=== PATIENT | male | born 1985 | race Two or more races ===

== ENCOUNTER 2018-02-20 12:55 | Inpatient (IN) | payer OTHER ==
[2018-02-20 13:23] VITALS: BMI 25.4
--- NOTE | 2018-02-20 14:57 | HP ---
CIWA Score - CIWA Score Nausea/Vomitin Muscle Tremors: 2 Anxiety: 3 Agitation: 2 Paroxysmal Sweats: 2 Orientation: 0-Oriented Tacttile Disturbances: 2-Mild Itch/Numbness/Burn Auditory Disturbances: 0-None Visual Disturbances: 0-None Headache: 2-Mild CIWA-Ar Total Score: 15 Admission ROS [facility] - HPI Chief Complaint: needs help to stop drinking and druging every day. Allergies/Adverse Reactions: Allergies Allergy/AdvReac Type Severity Reaction Status Date / Time No Known Allergies Allergy Verified 02/20/18 14:27 History of Present Illness: 32 y/o m pt h/o alcohol use starting at age 14 . Wants detox. Exam Limitations: No Limitations - Ebola screening Have you traveled outside of the country in the last 21 days: No Have you had contact with anyone from an Ebola affected area: No Have you been sick,other than usual withdrawal symptoms: No - Review of Systems Constitutional: Malaise, Night Sweats, Changes in sleep EENT: reports: Other (missing teeth) Respiratory: reports: No Symptoms reported Cardiac: reports: No Symptoms Reported GI: reports: Nausea : reports: Frequency Musculoskeletal: reports: Back Pain Neuro: reports: Headache, Tremors Endocrine: reports: No Symptoms Reported Hematology: reports: No Symptoms Reported Psychiatric: reports: Orientated x3, Anxious, Depressed Other Systems: Reviewed and Negative Patient History - Patient Medical History Hx Anemia: No Hx Asthma: No Hx Chronic Obstructive Pulmonary Disease (COPD): No Hx Cancer: No Hx Cardiac Disorders: No Hx Hypertension: No Hx Hypercholesterolemia: No Hx Pacemaker: No HX Cerebrovascular Accident: No Hx Seizures: No Hx Dementia: No Hx Diabetes: No Hx Gastrointestinal Disorders: No Hx Genitourinary Disorders: No Hx Sexually Transmitted Disorders: No Hx Renal Disease (ESRD): No Hx Thyroid Disease: No Hx Hepatitis C: No Hx Depression: Yes Hx Suicide Attempt: No Hx Bipolar Disorder: No Hx Schizophrenia: Yes - Patient Surgical History Past Surgical History: Yes Hx Neurologic Surgery: No Hx Cataract Extraction: No Hx Cardiac Surgery: No Hx Lung Surgery: No Hx Breast Surgery: No Hx Breast Biopsy: No Hx Abdominal Surgery: No Hx Appendectomy: No Hx Cholecystectomy: No Hx Genitourinary Surgery: No Hx Section: No Hx Orthopedic Surgery: Yes (fx, right orbit/mandible) Anesthesia Reaction: No - PPD History Previous Implant?: Yes Documented Results: Negative w/o proof Implanted On Prior R Admission?: No - Reproductive History Patient is a Female of Child Bearing Age (11 -55 yrs old): No - Smoking Cessation Smoking history: Current every day smoker Have you smoked in the past 12 months: Yes Aproximately how many cigarettes per day: 2 Cigars Per Day: 0 Hx Chewing Tobacco Use: No Initiated information on smoking cessation: Yes 'Breaking Loose' booklet given: 02/20/18 - Substance & Tx. History Hx Alcohol Use: Yes Hx Substance Use: Yes Substance Use Type: Alcohol, Marijuana Hx Substance Use Treatment: No - Substances Abused Alcohol-beef Route: Oral Frequency: Daily Amount used: 1-6 pk. 24 oz cans Age of first use: 12 Date of Last Use: 02/19/18 Marijuana Route: Smoking Frequency: Daily Amount used: $5 Age of first use: 14 Date of Last Use: 02/19/18 Family Disease History - Family Disease History Family History: Denies Admission Physical Exam [facility] - Vital Signs Vital Signs: Vital Signs - 24 hr 02/20/18 13:17 Temperature 98.3 F Pulse Rate 68 Respiratory 18 Rate Blood Pressure 121/78 - Physical General Appearance: Yes: No Apparent Distress, Appropriately Dressed, Thin, Anxious HEENTM: Yes: EOMI, Hearing grossly Normal, Normocephalic, Normal Voice, HUSSEIN Respiratory: Yes: Within Normal Limits, Chest Non-Tender, Lungs Clear, Normal Breath Sounds, No Respiratory Distress Neck: Yes: Within Normal Limits Breast: Yes: Within Normal Limits Cardiology: Yes: Regular Rhythm, Regular Rate, S1, S2 Abdominal: Yes: Normal Bowel Sounds, Non Tender, Flat, Soft, Increased Bowel Sounds Genitourinary: Yes: Frequency Back: Yes: Decreased Range of Motion, Muscle Spasm Musculoskeletal: Yes: Back pain Extremities: Yes: Non-Tender, Tremors 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 NML intact, Fully Oriented, Alert, Motor Strength 5/5, Normal Mood/Affect Integumentary: Yes: Moist Lymphatic: Yes: Within Normal Limits - Diagnostic (1) Chronic alcoholism Current Visit: Yes Status: Chronic (2) Marijuana dependence Current Visit: Yes Status: Chronic (3) Schizophrenia Current Visit: Yes Status: Chronic (4) Nicotine abuse Current Visit: Yes Status: Chronic Cleared for Admission [facility] - Detox or Rehab [facility] Level of Care: Medically Managed [facility] Breath Alcohol Content Breath Alcohol Content: 0 Urine Drug Screen - Results Drug Screen Negative: No Urine Drug Screen Results: THC-Marijuana
[2018-02-20] MEDS ORDERED: IBUPROFEN 400 MG TABLET (FP) PO PRN (15:16)
[2018-02-20] MEDS ORDERED: MENTHOL/PHENOL 1 EACH UD MM PRN (15:16)
[2018-02-20] MEDS ORDERED: MAG HYDROX/AL HYDROX/SIMETH 30 ML UNIT-DOSE CUP PO PRN (15:16)
[2018-02-20] MEDS ORDERED: chlordiazePOXIDE HCL 25 MG CAPSULE PO PRN (15:16)
[2018-02-20] MEDS ORDERED: hydrOXYzine PAMOATE 25 MG CAPSULE (FP) PO PRN (15:16)
[2018-02-20] MEDS ORDERED: P-EPHED 60MG/TRIPROLIDI 2.5MG TABLET PO PRN (15:16)
[2018-02-20] MEDS ORDERED: guaiFENesin/D-METHORPHAN HB 10 ML UNIT-DOSE CUPS PO PRN (15:16)
[2018-02-20] MEDS ORDERED: MAGNESIUM CITRATE 300 ML BOTTLE PO PRN (15:16)
[2018-02-20] MEDS ORDERED: LOPERAMIDE HCL 2 MG CAPSULE PO PRN (15:16)
[2018-02-20] MEDS ORDERED: MAGNESIUM HYDROX 2400MG/30ML ORAL SUSPENSION 30 ML CUP PO PRN (15:16)
[2018-02-20] MEDS ORDERED: ACETAMINOPHEN 325 MG TABLET (FP) PO PRN (15:16)
[2018-02-20 17:40] LABS: URINE APPEARANCE TURBID; URINE BILIRUBIN NEGATIVE (<2.0 mg/dL); URINE COLOR DKYELLOW; URINE GLUCOSE (UA) NEGATIVE (NEGATIVE); URINE KETONE NEGATIVE (NEGATIVE); URINE LEUK ESTERASE NEGATIVE (NEGATIVE); URINE NITRITE NEGATIVE (NEGATIVE); URINE PROTEIN NEGATIVE (NEGATIVE); URINE UROBILINOGEN NEGATIVE mg/dL (0.2-1.0)
[2018-02-20] MEDS: chlordiazePOXIDE HCL 25 MG CAPSULE PO SCH ×2 (18:09→22:27)
[2018-02-20] MEDS ORDERED: MELATONIN 5 MG TABLETS PO PRN (22:00)
[2018-02-20] MEDS: THIAMINE HCL 100 MG TABLET (FP) PO SCH (22:27)
[2018-02-21] MEDS: chlordiazePOXIDE HCL 25 MG CAPSULE PO SCH ×2 (05:30→22:40)
[2018-02-21] MEDS ORDERED: PRENATAL VITAMINS W/ FOLIC ACID TABLET (FP) PO SCH (10:00)
[2018-02-21 10:08] LABS: HEMATOCRIT 42.6 % (35.4-49); HEMOGLOBIN 14.5 GM/dL (11.7-16.9); MCH 32.2 pg (25.7-33.7); MCHC 34.1 g/dl (32.0-35.9); MEAN CELL VOLUME 94.5 fl (80-96); MEAN PLT VOLUME 9.2 fl (7.5-11.1); PLATELET COUNT 193 K/MM3 (134-434); RBC 4.51 M/mm3 (4.00-5.60); RDW 12.5 % (11.9-15.9); WHITE BLOOD COUNT 6.3 K/mm3 (4.0-10.0)
[2018-02-21 10:22] LABS: CHLORIDE 108 mmol/L (98-107); SODIUM 142 mmol/L (136-145)
[2018-02-21 10:52] LABS: ALBUMIN 3.6 g/dl (3.4-5.0); ALK PHOS 87 U/L (45-117); ANION GAP 9 MMOL/L (8-16); BILIRUBIN,TOTAL 0.6 mg/dL (0.2-1.0); BLOOD UREA NITROGEN 10 mg/dL (7-18); CALCIUM 9.1 mg/dL (8.5-10.1); CO2 25 mmol/L (21-32); CREATININE 0.6 mg/dL (0.7-1.3); GLUCOSE,RANDOM 91 mg/dL (74-106); SGOT/AST 20 U/L (15-37); SGPT/ALT 26 U/L (12-78); TOT PROT 6.6 g/dl (6.4-8.2)
--- NOTE | 2018-02-21 12:00 | PN ---
S CIWA - CIWA Score Nausea/Vomitin Muscle Tremors: 2 Anxiety: 2 Agitation: 2 Paroxysmal Sweats: 2 Orientation: 0-Oriented Tacttile Disturbances: 2-Mild Itch/Numbness/Burn Auditory Disturbances: 0-None Visual Disturbances: 0-None Headache: 2-Mild CIWA-Ar Total Score: 14 S Progress Note (SOAP) Subjective: Tremors, interrupted sleep, muscle aches Objective: 02/21/18 11:59 Vital Signs - 8 hr 02/21/18 02/21/18 06:00 09:24 Temperature 97.1 F L 98.1 F Pulse Rate 51 L 57 L Respiratory 18 18 Rate Blood Pressure 112/70 125/77 Laboratory Last Values WBC 6.3 K/mm3 (4.0-10.0) 02/21/18 08:00 RBC 4.51 M/mm3 (4.00-5.60) 02/21/18 08:00 Hgb 14.5 GM/dL (11.7-16.9) 02/21/18 08:00 Hct 42.6 % (35.4-49) 02/21/18 08:00 MCV 94.5 fl (80-96) 02/21/18 08:00 MCH 32.2 pg (25.7-33.7) 02/21/18 08:00 MCHC 34.1 g/dl (32.0-35.9) 02/21/18 08:00 RDW 12.5 % (11.9-15.9) 02/21/18 08:00 Plt Count 193 K/MM3 (134-434) 02/21/18 08:00 MPV 9.2 fl (7.5-11.1) 02/21/18 08:00 Sodium 142 mmol/L (136-145) 02/21/18 08:00 Potassium 4.0 mmol/L (3.5-5.1) 02/21/18 08:00 Chloride 108 mmol/L (98-107) H 02/21/18 08:00 Carbon Dioxide 25 mmol/L (21-32) 02/21/18 08:00 Anion Gap 9 MMOL/L (8-16) 02/21/18 08:00 BUN 10 mg/dL (7-18) 02/21/18 08:00 Creatinine 0.6 mg/dL (0.7-1.3) L 02/21/18 08:00 Creat Clearance w eGFR > 60 (>60) 02/21/18 08:00 Random Glucose 91 mg/dL (74-106) 02/21/18 08:00 Calcium 9.1 mg/dL (8.5-10.1) 02/21/18 08:00 Total Bilirubin 0.6 mg/dL (0.2-1.0) 02/21/18 08:00 AST 20 U/L (15-37) 02/21/18 08:00 ALT 26 U/L (12-78) 02/21/18 08:00 Alkaline Phosphatase 87 U/L (45-117) 02/21/18 08:00 Total Protein 6.6 g/dl (6.4-8.2) 02/21/18 08:00 Albumin 3.6 g/dl (3.4-5.0) 02/21/18 08:00 Urine Color Dkyellow 02/20/18 13:15 Urine Appearance Turbid 02/20/18 13:15 Urine pH 7.0 (5.0-8.0) 02/20/18 13:15 Ur Specific Plush 1.024 (1.001-1.035) 02/20/18 13:15 Urine Protein Negative (NEGATIVE) 02/20/18 13:15 Urine Glucose (UA) Negative (NEGATIVE) 02/20/18 13:15 Urine Ketones Negative (NEGATIVE) 02/20/18 13:15 Urine Blood Negative (NEGATIVE) 02/20/18 13:15 Urine Nitrite Negative (NEGATIVE) 02/20/18 13:15 Urine Bilirubin Negative (<2.0 mg/dL) 02/20/18 13:15 Urine Urobilinogen Negative mg/dL (0.2-1.0) 02/20/18 13:15 Ur Leukocyte Esterase Negative (NEGATIVE) 02/20/18 13:15 Labs noted Alert, no apparent distress, denies pain Assessment: 02/21/18 11:59 Withdrawal sx Plan: Continue detox
[2018-02-21] MEDS ORDERED: chlordiazePOXIDE HCL 25 MG CAPSULE PO SCH (17:00)
--- NOTE | 2018-02-21 17:09 | CONSULT ---
[facility] Psychiatric Consult - Data Date of interview: 02/21/18 Admission source: [facility] Identifying data: First admission to [facility] for this 32 y/o male seeking detox treatment on for alcohol,cocaine and cannabis dependence.Patient is single,a father of two,homeless,unemployed and supported on Public Asistance. Substance Abuse History: Confirmed by the patient in this interview.Details in current [facility] report : Smoking history: Current every day smoker. Have you smoked in the past 12 months: Yes. Aproximately how many cigarettes per day: 2. Cigars Per Day: 0. Hx Chewing Tobacco Use: No. Initiated information on smoking cessation: Yes. 'Breaking Loose' booklet given: 02/20/18. - Substance & Tx. History. Hx Alcohol Use: Yes. Hx Substance Use: Yes. Substance Use Type : Alcohol, Marijuana. Hx Substance Use Treatment: No. - Substances Abused. * * Alcohol-beef. Route: Oral. Frequency: Daily. Amount used: 1-6 pk. 24 oz cans. Age of first use: 12. Date of Last Use: 02/19/18. Marijuana. Route : Smoking. Frequency: Daily. Amount used: $5. Age of first use: 14. Date of Last Use: 02/19/18 Medical History: Patient endorses good general health.Noted history of orthosurgery (injuries to right orbit + mandible). Psychiatric History: Patient admits to a history of two psychiatric hospitalizations ([facility] [place] [facility]).Reportedly diagnosed with Schizophrenia.Mr Westbrook rainealres that he has been treated, in the past, with risperdal (dose not recalled).He also indicates that he not seen any psychiatrist " for a little while ", which he translates as 3-4 months on non-adherence to any form of OPD care.Patient denies history of suicide attempts. Physical/Sexual Abuse/Trauma History: Patient denies. Additional Comment: Urine Drug Screen Results: THC-Marijuana.Noted. Mental Status Exam - Mental Status Exam Alert and Oriented to: Time, Place, Person Cognitive Function: Good Patient Appearance: Well Groomed (small stature,tattoos on both forearms) Mood: Nervous, Anxious, Hopeful Affect: Normal Range Patient Behavior: Fatigued, Cooperative Speech Pattern: Clear, Appropriate Voice Loudness: Normal Thought Process: Intact, Goal Oriented Thought Disorder: Not Present Hallucinations: Denies Suicidal Ideation: Denies Homicidal Ideation: Denies Insight/Judgement: Poor Sleep: Poorly, Difficulty falling asleep Appetite: Good Muscle strength/Tone: Normal Gait/Station: Normal Psychiatric Findings - Problem List ([place] 1, 2,3) (1) Uncomplicated alcohol withdrawal Current Visit: Yes Status: Acute (2) Marijuana dependence Current Visit: Yes Status: Acute (3) Nicotine dependence Current Visit: Yes Status: Acute (4) Insomnia Current Visit: Yes Status: Acute (5) Schizophrenia Current Visit: Yes Status: Chronic Comment: As per self-report. - Initial Treatment Plan Initial Treatment Plan: Psychoeducation.Sleep hygiene.Detoxification in progress.Patient wishes to resume risperdal.Will restart risperdal at 1 mg po bid.Insomnia is addressed with ambien 5 mg po hs prn (patient's request).Side effects/benefits of both drugs are discussed with the patient (including risk for sexual dysfunction,galactorrhea,gynecomastia,dyskinesias,parasomnias).Mr Westbrook is in agreement with this plan of care.Observation.
--- NOTE | 2018-02-21 19:09 | EKG ---
Test Reason : Blood Pressure : / mmHG Vent. Rate : 052 BPM Atrial Rate : 052 BPM P-R Int : 158 ms QRS Dur : 100 ms QT Int : 412 ms P-R-T Axes : 006 045 041 degrees QTc Int : 383 ms SINUS BRADYCARDIA VOLTAGE CRITERIA FOR LEFT VENTRICULAR HYPERTROPHY EARLY REPOLARIZATION ABNORMAL ECG NO PREVIOUS ECGS AVAILABLE Confirmed by BLAINE LARIOS MD ([id number]) on 02/21/2018 7:08:41 PM Referred By: Confirmed By:BLAINE LARIOS MD
[2018-02-21] MEDS ORDERED: risperiDONE 1 MG TABLET (FP) PO SCH (22:00)
[2018-02-21] MEDS ORDERED: ZOLPIDEM TARTRATE 5 MG TABLET PO PRN (22:00)
[2018-02-21] MEDS: THIAMINE HCL 100 MG TABLET (FP) PO SCH (22:37)
[2018-02-21 22:49] VITALS: BP 130/88; PULSE 89; TEMP 97.5
--- NOTE | 2018-02-21 23:05 | DS ---
[facility] Detox Discharge Summary Admission Date: 02/20/18 Discharge Date: 02/21/18 - Physical Exam Results Vital Signs: Vital Signs Temperature 97.5 F L 02/21/18 22:48 Pulse Rate 89 02/21/18 22:48 Respiratory Rate 18 02/21/18 22:48 Blood Pressure 130/88 02/21/18 22:48 O2 Sat by Pulse Oximetry (%) - Medication Discharge Medications: Ambulatory Orders Risperidone [Risperdal -] 3 mg PO HS 02/20/18
[2018-02-22] MEDS ORDERED: chlordiazePOXIDE 5 MG CAPSULE PO SCH (17:00)
[2018-02-23] MEDS ORDERED: chlordiazePOXIDE HCL 10 MG CAPSULE PO SCH (17:00)
== END 2018-02-21 23:18 | disposition left against medical advice (07) | DRG 770 ==
LOC: YASAS 12:55 → Y6N 15:06
PROVIDERS: ADMIT Surgery; ATTEND Surgery
PROC: HZ2ZZZZ Detoxification Services for Substance Abuse Treatment (ICD-10-PCS; principal; 2018-02-20)
DX: F10.230 Alcohol dependence with withdrawal, uncomplicated (principal); F12.20 Cannabis dependence, uncomplicated; F17.210 Nicotine dependence, cigarettes, uncomplicated; F20.9 Schizophrenia, unspecified; G47.00 Insomnia, unspecified
CPT/HCPCS: 36415; 80053; 81003; 85027; 86593; 93005; 93010; J2794

== ENCOUNTER 2020-01-24 17:18 | Inpatient (IN) | payer OTHER ==
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
[2020-01-24] MEDS ORDERED: BISMUTH SUBSALICYLATE 524 MG/30 ML UD PO PRN (19:16)
[2020-01-24] MEDS ORDERED: IBUPROFEN 400 MG TABLET (FP) PO PRN (19:16)
[2020-01-24] MEDS ORDERED: MELATONIN 5 MG TABLETS PO PRN (19:16)
[2020-01-24] MEDS ORDERED: MENTHOL/PHENOL 1 EACH UD MM PRN (19:16)
[2020-01-24] MEDS ORDERED: MAGNESIUM HYDROX 2400MG/30ML ORAL SUSPENSION 30 ML CUP PO PRN (19:16)
[2020-01-24] MEDS ORDERED: MAG HYDROX/AL HYDROX/SIMETH 30 ML UNIT-DOSE CUP PO PRN (19:16)
[2020-01-24] MEDS ORDERED: ACETAMINOPHEN 325 MG TABLET (FP) PO PRN ×2 (19:16)
[2020-01-24] MEDS ORDERED: NICOTINE POLACRILEX 2 MG GUM BUC PRN (19:16)
[2020-01-24] MEDS ORDERED: MAGNESIUM CITRATE 300 ML BOTTLE PO PRN (19:16)
[2020-01-24] MEDS ORDERED: ONDANSETRON *ODT* 4 MG TABLET SL PRN (19:16)
[2020-01-24] MEDS ORDERED: chlordiazePOXIDE HCL 10 MG CAPSULE PO PRN (19:18)
[2020-01-24 19:20] VITALS: BMI 25.4
[2020-01-24] MEDS: chlordiazePOXIDE HCL 25 MG CAPSULE PO SCH (20:07)
[2020-01-24] MEDS: METHOCARBAMOL 500 MG TABLET PO PRN (20:07)
[2020-01-24] MEDS: hydrOXYzine PAMOATE 25 MG CAPSULE (FP) PO PRN (20:08)
[2020-01-24] MEDS: THIAMINE HCL 100 MG TABLET (FP) PO SCH (21:59)
[2020-01-24] MEDS: BACITRACIN/POLYMYXIN B SULFATE 15 GM TUBE TP SCH (23:59)
[2020-01-25] MEDS: chlordiazePOXIDE HCL 25 MG CAPSULE PO SCH ×3 (05:44→22:00)
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
[2020-01-25 09:54] LABS: HEMOGLOBIN 14.4 GM/dL (11.7-16.9); MCHC 33.4 g/dl (32.0-35.9); MEAN CELL VOLUME 95.8 fl (80-96); MEAN PLT VOLUME 8.7 fl (7.5-11.1); PLATELET COUNT 269 K/MM3 (134-434); RBC 4.49 M/mm3 (4.00-5.60); RDW 13.1 % (11.9-15.9)
[2020-01-25 10:05] LABS: ALBUMIN 3.4 g/dl (3.4-5.0); BILIRUBIN,TOTAL 1.3 mg/dL (0.2-1); BLOOD UREA NITROGEN 8.7 mg/dL (7-18); CALCIUM 9.1 mg/dL (8.5-10.1); CREATININE 0.6 mg/dL (0.55-1.3); POTASSIUM 4.5 mmol/L (3.5-5.1); TOT PROT 6.9 g/dl (6.4-8.2)
[2020-01-25] MEDS: BACITRACIN/POLYMYXIN B SULFATE 15 GM TUBE TP SCH ×2 (10:06→22:14)
[2020-01-25] MEDS: PRENATAL VITAMINS W/ FOLIC ACID TABLET (FP) PO SCH (10:07)
[2020-01-25] MEDS: risperiDONE 3 MG TABLET PO SCH ×2 (10:40→22:14)
[2020-01-25] MEDS: IBUPROFEN 600 MG TABLET (FP) PO PRN (11:58)
[2020-01-25] MEDS: hydrOXYzine PAMOATE 25 MG CAPSULE (FP) PO PRN (19:35)
[2020-01-25] MEDS: THIAMINE HCL 100 MG TABLET (FP) PO SCH (22:13)
[2020-01-26] MEDS: chlordiazePOXIDE 5 MG CAPSULE PO SCH ×3 (05:28→22:00)
[2020-01-26] MEDS: IBUPROFEN 600 MG TABLET (FP) PO PRN ×2 (07:21→20:56)
--- NOTE | 2020-01-26 10:14 | PN ---
S CIWA - CIWA Score Nausea/Vomitin-No Nausea/No Vomiting Muscle Tremors: 2 Anxiety: 1-Mildly Anxious Agitation: 1-Slight > Activity Paroxysmal Sweats: 2 Orientation: 0-Oriented Tacttile Disturbances: 0-None Auditory Disturbances: 0-None Visual Disturbances: 0-None Headache: 0-None Present CIWA-Ar Total Score: 6 BHS Progress Note (SOAP) Subjective: tired sleepy sweats Objective: 01/26/20 10:14 Vital Signs Temperature 98.2 F 01/26/20 08:29 Pulse Rate 86 01/26/20 08:29 Respiratory Rate 20 01/26/20 08:29 Blood Pressure 118/76 01/26/20 08:29 O2 Sat by Pulse Oximetry (%) 98 01/26/20 08:29 Laboratory Tests 01/24/20 01/25/20 01/25/20 19:30 08:00 08:00 WBC 3.0 L RBC 4.49 Hgb 14.4 Hct 43.0 MCV 95.8 MCH 32.0 MCHC 33.4 RDW 13.1 Plt Count 269 D MPV 8.7 Sodium Potassium Chloride Carbon Dioxide Anion Gap BUN Creatinine Est GFR (CKD-EPI)AfAm Est GFR (CKD-EPI)NonAf Random Glucose Calcium Total Bilirubin AST ALT Alkaline Phosphatase Total Protein Albumin Syphilis Serology Non-reactive COVID-19 (ALDO) Not detected 01/25/20 08:00 WBC RBC Hgb Hct MCV MCH MCHC RDW Plt Count MPV Sodium 139 Potassium 4.5 Chloride 103 Carbon Dioxide 28 Anion Gap 7 L BUN 8.7 Creatinine 0.6 Est GFR (CKD-EPI)AfAm 150.97 Est GFR (CKD-EPI)NonAf 130.26 Random Glucose 94 Calcium 9.1 Total Bilirubin 1.3 H AST 49 H ALT 49 Alkaline Phosphatase 97 Total Protein 6.9 Albumin 3.4 Syphilis Serology COVID-19 (ALDO) aaox3 lying in bed no acute distress Assessment: 01/26/20 10:14 withdrawals Plan: continue detox increase fluids
[2020-01-26] MEDS: BACITRACIN/POLYMYXIN B SULFATE 15 GM TUBE TP SCH ×2 (10:21→22:20)
[2020-01-26] MEDS: PRENATAL VITAMINS W/ FOLIC ACID TABLET (FP) PO SCH (10:21)
[2020-01-26] MEDS: risperiDONE 3 MG TABLET PO SCH ×2 (10:22→22:17)
[2020-01-26] MEDS: METHOCARBAMOL 500 MG TABLET PO PRN (16:28)
[2020-01-26] MEDS: THIAMINE HCL 100 MG TABLET (FP) PO SCH (22:16)
[2020-01-26] MEDS: MELATONIN 5 MG TABLETS PO PRN (22:17)
[2020-01-27] MEDS ORDERED: chlordiazePOXIDE HCL 10 MG CAPSULE PO PRN
[2020-01-27] MEDS: chlordiazePOXIDE HCL 10 MG CAPSULE PO SCH ×3 (05:24→22:00)
[2020-01-27] MEDS: IBUPROFEN 600 MG TABLET (FP) PO PRN ×3 (09:16→23:09)
--- NOTE | 2020-01-27 10:58 | PN ---
S CIWA - CIWA Score Nausea/Vomitin-No Nausea/No Vomiting Muscle Tremors: 2 Anxiety: 1-Mildly Anxious Agitation: 1-Slight > Activity Paroxysmal Sweats: No Perspiration Orientation: 0-Oriented Tacttile Disturbances: 0-None Auditory Disturbances: 0-None Visual Disturbances: 0-None Headache: 0-None Present CIWA-Ar Total Score: 4 BHS Progress Note (SOAP) Subjective: headache Objective: 01/27/20 10:57 Vital Signs Temperature 97.5 F L 01/27/20 08:59 Pulse Rate 72 01/27/20 08:59 Respiratory Rate 18 01/27/20 08:59 Blood Pressure 127/87 01/27/20 08:59 O2 Sat by Pulse Oximetry (%) 100 01/27/20 08:59 aaox3 ambulating no acute distress Assessment: 01/27/20 10:57 withdrawals Plan: continue and complete detox increase fluids tylenol or motrin prn d/c in am
[2020-01-27] MEDS: PRENATAL VITAMINS W/ FOLIC ACID TABLET (FP) PO SCH (11:11)
[2020-01-27] MEDS: BACITRACIN/POLYMYXIN B SULFATE 15 GM TUBE TP SCH ×2 (11:11→22:43)
[2020-01-27] MEDS: risperiDONE 3 MG TABLET PO SCH ×2 (14:06→22:43)
[2020-01-27] MEDS: THIAMINE HCL 100 MG TABLET (FP) PO SCH (22:43)
[2020-01-27] MEDS: MELATONIN 5 MG TABLETS PO PRN (22:44)
[2020-01-28] MEDS ORDERED: chlordiazePOXIDE HCL 10 MG CAPSULE PO ONE (05:00)
--- NOTE | 2020-01-28 08:14 | DS ---
[facility] Detox Discharge Summary Admission Date: 01/24/20 Discharge Date: 01/28/20 - History Present History: Alcohol Dependence, Cannabis Dependence, Cocaine Dependence - Physical Exam Results Vital Signs: Vital Signs Temperature 97.1 F L 01/28/20 05:20 Pulse Rate 65 01/28/20 05:20 Respiratory Rate 16 01/28/20 05:20 Blood Pressure 101/69 01/28/20 05:20 O2 Sat by Pulse Oximetry (%) 100 01/28/20 05:20 Pertinent Admission Physical Exam Findings: Vital Signs Temperature 97.1 F L 01/28/20 05:20 Pulse Rate 65 01/28/20 05:20 Respiratory Rate 16 01/28/20 05:20 Blood Pressure 101/69 01/28/20 05:20 O2 Sat by Pulse Oximetry (%) 100 01/28/20 05:20 Laboratory Tests 01/24/20 01/25/20 01/25/20 19:30 08:00 08:00 WBC 3.0 L RBC 4.49 Hgb 14.4 Hct 43.0 MCV 95.8 MCH 32.0 MCHC 33.4 RDW 13.1 Plt Count 269 D MPV 8.7 Sodium Potassium Chloride Carbon Dioxide Anion Gap BUN Creatinine Est GFR (CKD-EPI)AfAm Est GFR (CKD-EPI)NonAf Random Glucose Calcium Total Bilirubin AST ALT Alkaline Phosphatase Total Protein Albumin Syphilis Serology Non-reactive COVID-19 (ALDO) Not detected 01/25/20 08:00 WBC RBC Hgb Hct MCV MCH MCHC RDW Plt Count MPV Sodium 139 Potassium 4.5 Chloride 103 Carbon Dioxide 28 Anion Gap 7 L BUN 8.7 Creatinine 0.6 Est GFR (CKD-EPI)AfAm 150.97 Est GFR (CKD-EPI)NonAf 130.26 Random Glucose 94 Calcium 9.1 Total Bilirubin 1.3 H AST 49 H ALT 49 Alkaline Phosphatase 97 Total Protein 6.9 Albumin 3.4 Syphilis Serology COVID-19 (ALDO) aaox3 ambulating no acute distress lungs CTA - Treatment Hospital Course: Detox Protocol Followed, Detoxed Safely, Responded well, Discharged Condition Good, Rehab Referral Accepted - Medication Discharge Medications: Ambulatory Orders Risperidone [Risperdal -] 3 mg PO BID 02/20/18 - Diagnosis (1) Cannabis dependence Current Visit: Yes Status: Chronic (2) Cocaine dependence Current Visit: Yes Status: Chronic Qualifiers: Substance use status: uncomplicated Qualified Code(s): F14.20 - Cocaine dependence, uncomplicated (3) Substance induced mood disorder Current Visit: Yes Status: Acute (4) Substance-induced sleep disorder Current Visit: Yes Status: Acute (5) Uncomplicated alcohol withdrawal Current Visit: Yes Status: Chronic (6) Insomnia Current Visit: No Status: Acute (7) Chronic alcoholism Current Visit: No Status: Chronic (8) Nicotine dependence Current Visit: Yes Status: Chronic Qualifiers: Nicotine product type: cigarettes Substance use status: uncomplicated Qualified Code(s): F17.210 - Nicotine dependence, cigarettes, uncomplicated (9) Schizophrenia Current Visit: No Status: Chronic - AMA Did Patient Leave Against Medical Advice: No
[2020-01-28] MEDS ORDERED: IBUPROFEN 400 MG TABLET (FP) PO PRN (09:30)
[2020-01-28] MEDS ORDERED: METHOCARBAMOL 750 MG TABLET PO PRN (09:30)
[2020-01-28 09:50] VITALS: BP 119/69; PULSE 72; TEMP 97.8
[2020-01-28] MEDS: BACITRACIN/POLYMYXIN B SULFATE 15 GM TUBE TP SCH (10:16)
[2020-01-28] MEDS: PRENATAL VITAMINS W/ FOLIC ACID TABLET (FP) PO SCH (10:16)
== END 2020-01-28 11:44 | disposition other institution (70) | DRG 774 ==
LOC: YASAS 17:18 → Y6N 19:02
PROVIDERS: ADMIT Allergy & Immunology; ATTEND Allergy & Immunology
PROC: HZ2ZZZZ Detoxification Services for Substance Abuse Treatment (ICD-10-PCS; principal; 2020-01-24)
DX: F10.230 Alcohol dependence with withdrawal, uncomplicated (principal); F14.20 Cocaine dependence, uncomplicated; F12.20 Cannabis dependence, uncomplicated; F17.210 Nicotine dependence, cigarettes, uncomplicated; F19.24 Other psychoactive substance dependence with psychoactive substance-induced mood disorder; F19.282 Other psychoactive substance dependence with psychoactive substance-induced sleep disorder; F20.9 Schizophrenia, unspecified; G47.00 Insomnia, unspecified
CPT/HCPCS: 36415; 80053; 85027; 86780; U0003

== ENCOUNTER 2020-01-28 11:35 | Inpatient (IN) | payer OTHER ==
[2020-01-28] MEDS ORDERED: LOPERAMIDE HCL 2 MG CAPSULE PO PRN (12:50)
[2020-01-28] MEDS ORDERED: MAGNESIUM CITRATE 300 ML BOTTLE PO PRN (12:50)
[2020-01-28] MEDS ORDERED: P-EPHED 60MG/TRIPROLIDI 2.5MG TABLET PO PRN (12:50)
[2020-01-28] MEDS ORDERED: MENTHOL/PHENOL 1 EACH UD MM PRN (12:50)
[2020-01-28] MEDS ORDERED: NICOTINE POLACRILEX 2 MG GUM BUC PRN (12:50)
[2020-01-28] MEDS ORDERED: MAGNESIUM HYDROX 2400MG/30ML ORAL SUSPENSION 30 ML CUP PO PRN (12:50)
[2020-01-28] MEDS ORDERED: guaiFENesin 200 MG/10 ML 10 ML UNIT-DOSE CUPS PO PRN (12:50)
[2020-01-28] MEDS ORDERED: MAG HYDROX/AL HYDROX/SIMETH 30 ML UNIT-DOSE CUP PO PRN (12:50)
--- NOTE | 2020-01-28 12:52 | HP ---
[facility] Rehab Assess/Revision - Admission History Admitted to Rehab from: [facility] Date of Admission to Rehab: 01/28/2020 - Vital signs Vital Signs: Vital Signs Period Temp Pulse Resp BP Sys/Duran Pulse Ox Last 24 Hr 97.6 F 77 18 126/84 - Findings Detox History & Physical reviewed: Yes Concur with findings: Yes Inpatient Rehab Admission - Rehab Decision to Admit Inpatient rehab admission?: Yes - Initial Determination Are CD services needed?: Yes Free of communicable disease: Yes Not in need of hospitalization: Yes - Rehab Admission Criteria Previous failed treatment: Yes Poor recovery environment: Yes Comorbidities: Yes Lacks judgement: No Patient is meeting Inpatient Rehab admission criteria:: Yes
[2020-01-28] MEDS: hydrOXYzine PAMOATE 25 MG CAPSULE (FP) PO SCH ×3 (15:00→21:23)
[2020-01-28] MEDS: MELATONIN 5 MG TABLETS PO SCH (21:22)
[2020-01-28] MEDS: THIAMINE HCL 100 MG TABLET (FP) PO SCH (21:23)
[2020-01-28] MEDS: risperiDONE 3 MG TABLET PO SCH (21:23)
[2020-01-28] MEDS ORDERED: MELATONIN 5 MG TABLETS PO SCH (22:00)
[2020-01-29] MEDS: hydrOXYzine PAMOATE 25 MG CAPSULE (FP) PO SCH ×5 (06:18→21:11)
[2020-01-29] MEDS: IBUPROFEN 400 MG TABLET (FP) PO PRN ×2 (06:34→17:46)
[2020-01-29] MEDS: risperiDONE 3 MG TABLET PO SCH ×2 (10:09→21:11)
[2020-01-29] MEDS: PRENATAL VITAMINS W/ FOLIC ACID TABLET (FP) PO SCH (10:09)
[2020-01-29] MEDS: BACITRACIN 0.9 GM PACKET TP SCH (10:11)
--- NOTE | 2020-01-29 10:30 | PN ---
S Progress Note Note: patient has visual and auditory hallucination,psychiatrist consultation
[2020-01-29] MEDS: ACETAMINOPHEN 325 MG TABLET (FP) PO PRN ×2 (11:55→21:12)
--- NOTE | 2020-01-29 15:22 | CONSULT ---
[facility] Psychiatric Consult - Data Date of interview: 01/29/20 Admission source: [facility] Identifying data: Detoxification completed at [address] [place] [address]. Patient is admitted to [address] for rehabilitation treatment aiming at consolidating sobriety (MOUNA issues : alcohol, cocaine, cannabis, nicotine) + managing co-morbid schizophrenia. Patient is a 34 y/o male, single, a father of 2, unemployed (no source of income), domiciled (lives with his biological mother) and supported by relatives. Substance Abuse History: Discussed with the patient. MOUNA profile as follows : Smoking history: Current every day smoker. Have you smoked in the past 12 months: Yes. Aproximately how many cigarettes per day: 2. Cigars Per Day: 0. Hx Chewing Tobacco Use: No. Initiated information on smoking cessation: No. - Substances abused. Alcohol. Substance route: Oral. Frequency: Daily. Amount used: 2 x 6 packs. Age of first use: 17. Date of last use: 01/24/20. Cocaine. Substance route: Inhalation. Frequency: 3-6 times per week. Amount used: 2 bags. Age of first use: 17. Date of last use: 01/17/20. Marijuana/Hashish. Substance route: Smoking. Frequency: Daily. Amount used: 1 bag. Age of first use: 17. Date of last use: 01/23/20 Medical History: Patient endorses good general health. Noted abrasion on forehead (result of a recent fall, in the streets, during intoxication). History of fracture of the right orbit and mandible. No known allergies. Psychiatric History: Long standing history of mental illness (onset at age 9 : auditory hallucinations). Patient endorses history of two psychiatric hospitalizations ([facility] [place] + [facility]). Mr Westbrook has been diagnosed with Schizophrenia. He is chronically non adherent to medications + OPD care (no affiliation with any program). It appears that the patient gets refills for risperdal from [facility] providers. Has been off psychotropic medications for months until this [facility] visit. Patient denies history of suicide attempts. Physical/Sexual Abuse/Trauma History: Patient denies. Additional Comment: No toxicology available for review. Mental Status Exam - Mental Status Exam Alert and Oriented to: Time, Place, Person Cognitive Function: Good Patient Appearance: Well Groomed Mood: Anxious Affect: Mood Congruent, Blunted Patient Behavior: Appropriate, Cooperative Speech Pattern: Clear, Appropriate Voice Loudness: Normal Thought Process: Goal Oriented Thought Disorder: Bizarre Hallucinations: Denies Suicidal Ideation: Denies Homicidal Ideation: Denies Insight/Judgement: Poor Sleep: Poorly, Difficulty falling asleep Appetite: Good Gait/Station: Normal Psychiatric Findings - Problem List ([place] 1, 2,3) (1) Alcohol use disorder Current Visit: Yes Status: Chronic (2) Cannabis dependence Current Visit: Yes Status: Chronic (3) Cocaine dependence Current Visit: Yes Status: Chronic Qualifiers: Substance use status: uncomplicated Qualified Code(s): F14.20 - Cocaine dependence, uncomplicated (4) Nicotine dependence Current Visit: Yes Status: Chronic Qualifiers: Nicotine product type: cigarettes Substance use status: uncomplicated Qualified Code(s): F17.210 - Nicotine dependence, cigarettes, uncomplicated (5) Substance induced mood disorder Current Visit: Yes Status: Chronic (6) Schizophrenia Current Visit: Yes Status: Chronic (7) Insomnia Current Visit: Yes Status: Chronic (8) Non-compliance Current Visit: Yes Status: Chronic Comment: NOn adherence to psychiatric OPD care. - Initial Treatment Plan Initial Treatment Plan: Psychoeducation. Sleep hygiene. Support. Patient, in this interview, denies hallucinations but he insists to be on a medication for insomnia. Trazodone is selected. Side effects/benefits discussed. Risk of priapism explained to patient. Mr Westbrook gave consent (verbal) to . Trazodone 100 mg po hs. Ordered. Observation.
[2020-01-29] MEDS: MELATONIN 5 MG TABLETS PO SCH (21:11)
[2020-01-29] MEDS: THIAMINE HCL 100 MG TABLET (FP) PO SCH (21:11)
[2020-01-29] MEDS: traZODone HCL 100 MG TABLET (FP) PO SCH (21:12)
[2020-01-30] MEDS: hydrOXYzine PAMOATE 25 MG CAPSULE (FP) PO SCH ×5 (06:27→21:14)
[2020-01-30] MEDS: IBUPROFEN 400 MG TABLET (FP) PO PRN ×3 (06:28→21:15)
[2020-01-30] MEDS: PRENATAL VITAMINS W/ FOLIC ACID TABLET (FP) PO SCH (09:35)
[2020-01-30] MEDS: risperiDONE 3 MG TABLET PO SCH ×2 (09:35→21:14)
[2020-01-30] MEDS: BACITRACIN 0.9 GM PACKET TP SCH (09:36)
[2020-01-30] MEDS: traZODone HCL 100 MG TABLET (FP) PO SCH (21:14)
[2020-01-30] MEDS: MELATONIN 5 MG TABLETS PO SCH (21:15)
[2020-01-30] MEDS: THIAMINE HCL 100 MG TABLET (FP) PO SCH (21:16)
[2020-01-31] MEDS: hydrOXYzine PAMOATE 25 MG CAPSULE (FP) PO SCH ×3 (06:24→13:03)
[2020-01-31] MEDS: IBUPROFEN 400 MG TABLET (FP) PO PRN (08:58)
[2020-01-31] MEDS: risperiDONE 3 MG TABLET PO SCH ×2 (09:00→21:10)
[2020-01-31] MEDS: PRENATAL VITAMINS W/ FOLIC ACID TABLET (FP) PO SCH (09:00)
[2020-01-31] MEDS: BACITRACIN 0.9 GM PACKET TP SCH (09:01)
[2020-01-31] MEDS: MELATONIN 5 MG TABLETS PO SCH (21:10)
[2020-01-31] MEDS: hydrOXYzine PAMOATE 25 MG CAPSULE (FP) PO PRN (21:10)
[2020-01-31] MEDS: traZODone HCL 100 MG TABLET (FP) PO SCH (21:10)
[2020-01-31] MEDS: THIAMINE HCL 100 MG TABLET (FP) PO SCH (21:10)
[2020-02-01] MEDS: IBUPROFEN 400 MG TABLET (FP) PO PRN (06:24)
[2020-02-01] MEDS: PRENATAL VITAMINS W/ FOLIC ACID TABLET (FP) PO SCH (09:55)
[2020-02-01] MEDS: risperiDONE 3 MG TABLET PO SCH ×2 (09:55→21:37)
[2020-02-01] MEDS: BACITRACIN 0.9 GM PACKET TP SCH (09:55)
[2020-02-01] MEDS: MELATONIN 5 MG TABLETS PO SCH (21:37)
[2020-02-01] MEDS: hydrOXYzine PAMOATE 25 MG CAPSULE (FP) PO PRN (21:37)
[2020-02-01] MEDS: THIAMINE HCL 100 MG TABLET (FP) PO SCH (21:37)
[2020-02-01] MEDS: traZODone HCL 100 MG TABLET (FP) PO SCH (21:37)
[2020-02-02] MEDS: PRENATAL VITAMINS W/ FOLIC ACID TABLET (FP) PO SCH (10:00)
[2020-02-02] MEDS: risperiDONE 3 MG TABLET PO SCH ×2 (10:00→21:25)
[2020-02-02] MEDS: IBUPROFEN 400 MG TABLET (FP) PO PRN ×2 (10:01→17:58)
[2020-02-02] MEDS: BACITRACIN 0.9 GM PACKET TP SCH (10:02)
[2020-02-02] MEDS: MELATONIN 5 MG TABLETS PO SCH (21:25)
[2020-02-02] MEDS: hydrOXYzine PAMOATE 25 MG CAPSULE (FP) PO PRN (21:25)
[2020-02-02] MEDS: THIAMINE HCL 100 MG TABLET (FP) PO SCH (21:25)
[2020-02-02] MEDS: traZODone HCL 100 MG TABLET (FP) PO SCH (21:25)
[2020-02-03] MEDS: IBUPROFEN 400 MG TABLET (FP) PO PRN (08:40)
[2020-02-03] MEDS: PRENATAL VITAMINS W/ FOLIC ACID TABLET (FP) PO SCH (09:41)
[2020-02-03] MEDS: BACITRACIN 0.9 GM PACKET TP SCH (09:41)
[2020-02-03] MEDS: risperiDONE 3 MG TABLET PO SCH ×2 (09:41→21:25)
[2020-02-03] MEDS: ACETAMINOPHEN 325 MG TABLET (FP) PO PRN (13:31)
[2020-02-03] MEDS: hydrOXYzine PAMOATE 25 MG CAPSULE (FP) PO PRN ×2 (13:31→21:25)
[2020-02-03] MEDS: MELATONIN 5 MG TABLETS PO SCH (21:25)
[2020-02-03] MEDS: traZODone HCL 100 MG TABLET (FP) PO SCH (21:25)
[2020-02-03] MEDS: THIAMINE HCL 100 MG TABLET (FP) PO SCH (21:25)
[2020-02-04] MEDS: risperiDONE 3 MG TABLET PO SCH ×2 (09:38→21:16)
[2020-02-04] MEDS: PRENATAL VITAMINS W/ FOLIC ACID TABLET (FP) PO SCH (09:38)
[2020-02-04] MEDS: BACITRACIN 0.9 GM PACKET TP SCH (09:39)
[2020-02-04] MEDS: IBUPROFEN 400 MG TABLET (FP) PO PRN (17:35)
[2020-02-04] MEDS: MELATONIN 5 MG TABLETS PO SCH (21:15)
[2020-02-04] MEDS: traZODone HCL 100 MG TABLET (FP) PO SCH (21:16)
[2020-02-04] MEDS: THIAMINE HCL 100 MG TABLET (FP) PO SCH (21:16)
[2020-02-05] MEDS: IBUPROFEN 400 MG TABLET (FP) PO PRN (08:17)
[2020-02-05] MEDS: PRENATAL VITAMINS W/ FOLIC ACID TABLET (FP) PO SCH (09:52)
[2020-02-05] MEDS: risperiDONE 3 MG TABLET PO SCH ×2 (09:52→21:24)
[2020-02-05] MEDS: ACETAMINOPHEN 325 MG TABLET (FP) PO PRN (10:10)
[2020-02-05] MEDS: hydrOXYzine PAMOATE 25 MG CAPSULE (FP) PO PRN (21:23)
[2020-02-05] MEDS: THIAMINE HCL 100 MG TABLET (FP) PO SCH (21:23)
[2020-02-05] MEDS: traZODone HCL 100 MG TABLET (FP) PO SCH (21:24)
[2020-02-05] MEDS: MELATONIN 5 MG TABLETS PO SCH (21:24)
[2020-02-06] MEDS: risperiDONE 3 MG TABLET PO SCH ×2 (09:38→21:14)
[2020-02-06] MEDS: IBUPROFEN 400 MG TABLET (FP) PO PRN (09:38)
[2020-02-06] MEDS: PRENATAL VITAMINS W/ FOLIC ACID TABLET (FP) PO SCH (09:38)
[2020-02-06] MEDS: MELATONIN 5 MG TABLETS PO SCH (21:14)
[2020-02-06] MEDS: THIAMINE HCL 100 MG TABLET (FP) PO SCH (21:14)
[2020-02-06] MEDS: traZODone HCL 100 MG TABLET (FP) PO SCH (21:14)
[2020-02-06] MEDS: hydrOXYzine PAMOATE 25 MG CAPSULE (FP) PO PRN (21:15)
[2020-02-07] MEDS: PRENATAL VITAMINS W/ FOLIC ACID TABLET (FP) PO SCH (09:45)
[2020-02-07] MEDS: risperiDONE 3 MG TABLET PO SCH ×2 (09:46→21:42)
[2020-02-07] MEDS: IBUPROFEN 400 MG TABLET (FP) PO PRN (09:47)
--- NOTE | 2020-02-07 10:05 | PN ---
[facility] Progress Note Note: Two stitches taken out from right forehead. Reports stitched 2 weeks ago at [facility] and requesting to take it out today. Vital Signs - 24 hr 02/06/20 02/06/20 02/07/20 14:30 20:39 06:27 Temperature 97.3 F L Pulse Rate 67 Respiratory 18 Rate Blood Pressure 120/69 O2 Sat by Pulse 98 97 97 Oximetry (%) Alert o x 3 nad Head: No acute truama except right forehead healing scar. Two stitches removed from right forehead. Area clean, no drainage.
[2020-02-07] MEDS: MELATONIN 5 MG TABLETS PO SCH (21:42)
[2020-02-07] MEDS: THIAMINE HCL 100 MG TABLET (FP) PO SCH (21:42)
[2020-02-07] MEDS: traZODone HCL 100 MG TABLET (FP) PO SCH (21:42)
[2020-02-08 08:09] VITALS: BP 117/80; PULSE 65; TEMP 98.4
[2020-02-08] MEDS: risperiDONE 3 MG TABLET PO SCH (09:46)
[2020-02-08] MEDS: PRENATAL VITAMINS W/ FOLIC ACID TABLET (FP) PO SCH (09:46)
--- NOTE | 2020-02-08 10:41 | DS ---
[facility] Rehab Discharge Summary - [facility] Rehab Discharge Summary Admission Date: 01/28/20 Discharge Date: 02/08/20 - History Present History: Alcohol dependence, Cannabis dependence, Cocaine dependence Additional Comments: Pt requests for early discharge today. Pt met with the counselor, Ms Divya Sandoval and has been referred to follow up wit CD aftercare. pt reports he has no current PCP. Pt also has been encouraged to follow up with primary care at [facility] close to his home. Pertinent Past History: Hx Fx right orbit/Mandible Schizophrenia Mood disorder - Discharge Physical Exam Vital Signs: Vital Signs Temperature 98.4 F 02/08/20 06:00 Pulse Rate 65 02/08/20 06:00 Respiratory Rate 18 02/08/20 06:00 Blood Pressure 117/80 02/08/20 06:00 O2 Sat by Pulse Oximetry (%) 98 02/08/20 06:00 Alert o x 3 nad oob ambulating with steady gait Cardiac:s1 s2, rrr Lungs:ctab abdomen:soft,+bs,nt.nd Extremities:no edema,skin intact Pertinent Admission Physical Exam Findings: Pt admitted from detox to rehab on 01/28/20 after completion. Pt had two [place] put in [facility] on right forehead which was in place from day of admission to detox due to fall from alcohol intoxication removed yesterday 02/07/20. - Treatment Discharge Condition: Discharge condition good Hospital Course: Pt accepted CD referral to [facility] - Medication Discharge Medications: Ambulatory Orders Risperidone [Risperdal -] 3 mg PO BID 02/20/18 traZODone HCL [Desyrel -] 100 mg PO HS #30 tablet 02/08/20 - Medication-Assisted Treatment (MAT) Medication-Assisted Treatment (MAT): No - Discharge Instructions Diet, activity, other medical instructions: Diet:Regular Activity: oob ad amanda Other medical instructions:follow up with medical management at [facility] primary care as needed. Follow up with CD aftercare referral as recommended. - Diagnosis (1) Alcohol use disorder Status: Chronic (2) Cannabis dependence Status: Chronic (3) Cocaine dependence Status: Chronic Qualifiers: Substance use status: uncomplicated Qualified Code(s): F14.20 - Cocaine dependence, uncomplicated (4) Nicotine dependence Status: Chronic Qualifiers: Nicotine product type: cigarettes Substance use status: uncomplicated Qualified Code(s): F17.210 - Nicotine dependence, cigarettes, uncomplicated - Follow-up Referral Minutes to complete discharge: 25 - AMA Did Patient Leave Against Medical Advice: No
--- NOTE | 2020-02-08 11:08 | PN ---
[facility] Progress Note Note: Patient is discharged today. Script for 30 days supply of Trazadone 100 mg/hs is electronically transmitted to [facility], [facility] [place] [address]
== END 2020-02-08 11:30 | disposition home or self-care (01) | DRG 772 ==
LOC: YASAS 11:35 → Y3E 11:36
PROVIDERS: ADMIT Allergy & Immunology; ATTEND Allergy & Immunology
PROC: HZ42ZZZ Group Counseling for Substance Abuse Treatment, Cognitive-Behavioral (ICD-10-PCS; principal; 2020-01-28)
PROC: 8E09XY8 Suture Removal from Head and Neck Region (ICD-10-PCS; 2020-02-07)
DX: F10.20 Alcohol dependence, uncomplicated (principal); F14.20 Cocaine dependence, uncomplicated; F12.20 Cannabis dependence, uncomplicated; F17.210 Nicotine dependence, cigarettes, uncomplicated; F19.24 Other psychoactive substance dependence with psychoactive substance-induced mood disorder; F20.9 Schizophrenia, unspecified; G47.00 Insomnia, unspecified; Z91.19 Patient's noncompliance with other medical treatment and regimen; Z48.02 Encounter for removal of sutures

== ENCOUNTER 2021-03-20 14:43 | Inpatient (IN) | payer OTHER ==
[2021-03-20] MEDS: LORazepam 2 MG TABLET PO SCH ×2 (18:02→22:17)
[2021-03-20] MEDS ORDERED: IBUPROFEN 400 MG TABLET (FP) PO PRN (18:28)
[2021-03-20] MEDS ORDERED: MAGNESIUM HYDROX 2400MG/30ML ORAL SUSPENSION 30 ML CUP PO PRN (18:28)
[2021-03-20] MEDS ORDERED: NICOTINE 10 MG CARTRIDGE (INHALER) IH PRN (18:28)
[2021-03-20] MEDS ORDERED: MAG HYDROX/AL HYDROX/SIMETH 30 ML UNIT-DOSE CUP PO PRN (18:28)
[2021-03-20] MEDS ORDERED: BISMUTH SUBSALICYLATE 524 MG/30 ML PO PRN (18:28)
[2021-03-20] MEDS ORDERED: ACETAMINOPHEN 325 MG TABLET (FP) PO PRN ×2 (18:28)
[2021-03-20] MEDS ORDERED: LORazepam 1 MG TABLET PO PRN (18:28)
[2021-03-20] MEDS ORDERED: MENTHOL/PHENOL 1 EACH UD MM PRN (18:28)
[2021-03-20] MEDS ORDERED: ONDANSETRON *ODT* 4 MG TABLET SL PRN (18:28)
[2021-03-20] MEDS ORDERED: METHOCARBAMOL 500 MG TABLET PO PRN (18:28)
[2021-03-20] MEDS ORDERED: MAGNESIUM CITRATE 300 ML BOTTLE PO PRN (18:28)
[2021-03-20 19:02] VITALS: BMI 25.2
[2021-03-20] MEDS ORDERED: risperiDONE 2 MG TABLET PO ONE (22:00)
[2021-03-20] MEDS ORDERED: traZODone HCL 100 MG TABLET (FP) PO SCH (22:00)
[2021-03-20] MEDS ORDERED: RISPERIDONE 3 MG PO SCH (22:00)
[2021-03-20] MEDS: MELATONIN 5 MG TABLETS PO SCH (22:17)
[2021-03-20] MEDS: hydrOXYzine PAMOATE 25 MG CAPSULE (FP) PO SCH (22:17)
[2021-03-20] MEDS: THIAMINE HCL 100 MG TABLET (FP) PO SCH (22:17)
[2021-03-21] MEDS: hydrOXYzine PAMOATE 25 MG CAPSULE (FP) PO SCH ×5 (06:24→22:37)
[2021-03-21] MEDS: LORazepam 2 MG TABLET PO SCH ×4 (06:24→22:38)
[2021-03-21 10:25] LABS: HEMOGLOBIN 14.3 GM/dL (11.7-16.9); MCH 33.1 pg (25.7-33.7); MCHC 34.8 g/dl (32.0-35.9); MEAN CELL VOLUME 95.1 fl (80-96); MEAN PLT VOLUME 9.3 fl (7.5-11.1); PLATELET COUNT 202 10^3/uL (134-434); RBC 4.31 M/mm3 (4.00-5.60); RDW 13.4 % (11.9-15.9); WHITE BLOOD COUNT 4.5 K/mm3 (4.0-10.0)
[2021-03-21 10:43] LABS: ALBUMIN 3.4 g/dl (3.4-5.0)
[2021-03-21 10:44] LABS: BLOOD UREA NITROGEN 11.4 mg/dL (7-18)
[2021-03-21 10:46] LABS: CREATININE 0.7 mg/dL (0.55-1.3)
[2021-03-21 10:47] LABS: BILIRUBIN,TOTAL 0.8 mg/dL (0.2-1); TOT PROT 7.1 g/dl (6.4-8.2)
[2021-03-21] MEDS: MELATONIN 5 MG TABLETS PO SCH (22:37)
[2021-03-21] MEDS: THIAMINE HCL 100 MG TABLET (FP) PO SCH (22:38)
[2021-03-22] MEDS: LORazepam 1 MG TABLET PO SCH ×2 (05:41→10:16)
[2021-03-22] MEDS: hydrOXYzine PAMOATE 25 MG CAPSULE (FP) PO SCH ×2 (05:41→10:15)
[2021-03-22 09:16] VITALS: BP 126/95; PULSE 90; TEMP 96.1
[2021-03-22] MEDS ORDERED: risperiDONE 1 MG TABLET PO SCH (12:30)
[2021-03-22] MEDS ORDERED: risperiDONE 2 MG TABLET PO SCH (22:00)
[2021-03-22] MEDS ORDERED: traZODone HCL 100 MG TABLET (FP) PO SCH (22:00)
[2021-03-23] MEDS ORDERED: LORazepam 0.5 MG TABLET PO PRN
[2021-03-23] MEDS ORDERED: LORazepam 0.5 MG TABLET PO SCH (05:00)
[2021-03-24] MEDS ORDERED: LORazepam 0.5 MG TABLET PO ONE (05:00)
== END 2021-03-22 14:00 | disposition left against medical advice (07) | DRG 770 ==
LOC: YASAS 14:43 → Y3N 20:14
PROVIDERS: ADMIT Allergy & Immunology; ATTEND Allergy & Immunology
PROC: HZ2ZZZZ Detoxification Services for Substance Abuse Treatment (ICD-10-PCS; principal; 2021-03-20)
DX: F10.230 Alcohol dependence with withdrawal, uncomplicated (principal); F12.20 Cannabis dependence, uncomplicated; F17.210 Nicotine dependence, cigarettes, uncomplicated; F31.9 Bipolar disorder, unspecified; F20.9 Schizophrenia, unspecified; F19.24 Other psychoactive substance dependence with psychoactive substance-induced mood disorder; G47.00 Insomnia, unspecified; Z56.0 Unemployment, unspecified; Z91.19 Patient's noncompliance with other medical treatment and regimen
CPT/HCPCS: 36415; 80053; 85027; 86780; C9803; J2794; U0003; U0005

== ENCOUNTER 2023-07-28 10:42 | Inpatient (IN) | payer OTHER ==
[2023-07-28 11:06] VITALS: BMI 24.4
[2023-07-28] MEDS ORDERED: DICYCLOMINE HCL 10 MG CAPSULE PO PRN (12:11)
[2023-07-28] MEDS ORDERED: NALOXONE HCL 0.4 MG/ML VIAL IM PRN (12:11)
[2023-07-28] MEDS ORDERED: guaiFENesin 600 MG TABLET.ER (FP) PO PRN (12:11)
[2023-07-28] MEDS ORDERED: NICOTINE POLACRILEX 4 MG GUM BUC PRN (12:11)
[2023-07-28] MEDS ORDERED: hydrOXYzine PAMOATE 25 MG CAPSULE (FP) PO PRN (12:11)
[2023-07-28] MEDS ORDERED: NALOXONE HCL (KLOXXADO) 8 MG SPRAY NS PRN (12:11)
[2023-07-28] MEDS ORDERED: BENZONATATE 200 MG CAPSULE PO PRN (12:11)
[2023-07-28] MEDS ORDERED: POLYETHYLENE GLYCOL (HEALTHYLAX) 3350 17 GM PACKET PO PRN (12:11)
[2023-07-28] MEDS ORDERED: ONDANSETRON *ODT* 4 MG TABLET SL PRN (12:11)
[2023-07-28] MEDS ORDERED: LOPERAMIDE HCL 2 MG CAPSULE PO PRN (12:11)
[2023-07-28] MEDS ORDERED: MAGNESIUM HYDROX 2400MG/30ML ORAL SUSPENSION 30 ML CUP PO PRN (12:11)
[2023-07-28] MEDS ORDERED: IBUPROFEN 400 MG TABLET (FP) PO PRN (12:11)
[2023-07-28] MEDS ORDERED: BISMUTH SUBSALICYLATE 262 MG/15 ML BTL PO PRN (12:11)
[2023-07-28] MEDS ORDERED: MAG HYDROX/AL HYDROX/SIMETH 30 ML UNIT-DOSE CUP PO PRN (12:11)
[2023-07-28] MEDS ORDERED: ACETAMINOPHEN 325 MG TABLET (FP) PO PRN (12:11)
[2023-07-28] MEDS ORDERED: METHOCARBAMOL 500 MG TABLET PO PRN (12:11)
[2023-07-28] MEDS ORDERED: BENZOCAINE/MENTHOL (CHLORASEPTIC ) LOZENGE MM PRN (12:11)
[2023-07-28] MEDS ORDERED: PRENATAL VITAMINS W/ FOLIC ACID TABLET (FP) PO ONE (12:41)
[2023-07-28] MEDS: PRENATAL VITAMINS W/ FOLIC ACID TABLET (FP) PO SCH (12:44)
[2023-07-28] MEDS: THIAMINE HCL 100 MG TABLET (FP) PO SCH (22:06)
[2023-07-28] MEDS: MELATONIN 5 MG TABLETS PO SCH (22:06)
[2023-07-29] MEDS ORDERED: chlordiazePOXIDE HCL 25 MG CAPSULE PO PRN (09:20)
[2023-07-29] MEDS: PRENATAL VITAMINS W/ FOLIC ACID TABLET (FP) PO SCH (10:21)
[2023-07-29] MEDS: chlordiazePOXIDE HCL 25 MG CAPSULE PO SCH ×3 (10:21→22:06)
[2023-07-29] MEDS: risperiDONE 1 MG TABLET PO SCH ×2 (12:05→22:05)
[2023-07-29 14:07] LABS: POTASSIUM 5.7 mmol/L (3.5-5.1)
[2023-07-29 14:19] LABS: HEMATOCRIT 43.3 % (35.4-49); HEMOGLOBIN 14.7 GM/dL (11.7-16.9); MCH 32.4 pg (25.7-33.7); MCHC 33.9 g/dl (32.0-35.9); MEAN CELL VOLUME 95.4 fl (80-96); MEAN PLT VOLUME 9.8 fl (7.5-11.1); PLATELET COUNT 206 10^3/uL (134-434); RBC 4.53 M/mm3 (4.00-5.60); WHITE BLOOD COUNT 2.8 K/mm3 (4.0-10.0)
[2023-07-29 14:21] LABS: ALBUMIN 4.1 g/dl (3.4-5.0); BLOOD UREA NITROGEN 9.8 mg/dL (7-18); CALCIUM 9.4 mg/dL (8.5-10.1)
[2023-07-29 14:23] LABS: BILIRUBIN,TOTAL 1.2 mg/dL (0.2-1)
[2023-07-29 14:24] LABS: CREATININE 0.7 mg/dL (0.55-1.3); TOT PROT 7.7 g/dl (6.4-8.2)
[2023-07-29] MEDS: traZODone HCL 50 MG TABLET (FP) PO SCH (22:05)
[2023-07-29] MEDS: THIAMINE HCL 100 MG TABLET (FP) PO SCH (22:05)
[2023-07-29] MEDS: MELATONIN 5 MG TABLETS PO SCH (22:06)
[2023-07-30] MEDS: chlordiazePOXIDE HCL 25 MG CAPSULE PO SCH ×4 (05:30→22:07)
[2023-07-30] MEDS ORDERED: SODIUM POLYSTYRENE SULFONATE 15 GM/60 ML BOTTLE PO ONE (09:30)
[2023-07-30] MEDS: risperiDONE 1 MG TABLET PO SCH ×2 (10:06→22:07)
[2023-07-30] MEDS: IBUPROFEN 600 MG TABLET (FP) PO PRN ×2 (17:29→22:29)
[2023-07-30] MEDS: traZODone HCL 50 MG TABLET (FP) PO SCH (22:07)
[2023-07-30] MEDS: THIAMINE HCL 100 MG TABLET (FP) PO SCH (22:07)
[2023-07-30] MEDS: MELATONIN 5 MG TABLETS PO SCH (22:08)
[2023-07-31] MEDS ORDERED: chlordiazePOXIDE 5 MG CAPSULE ONE (04:48)
[2023-07-31] MEDS: chlordiazePOXIDE HCL 10 MG CAPSULE PO SCH ×4 (05:21→22:05)
[2023-07-31] MEDS: PRENATAL VITAMINS W/ FOLIC ACID TABLET (FP) PO SCH (10:12)
[2023-07-31] MEDS: risperiDONE 1 MG TABLET PO SCH ×2 (10:12→22:05)
[2023-07-31] MEDS: MELATONIN 5 MG TABLETS PO SCH (22:05)
[2023-07-31] MEDS: traZODone HCL 50 MG TABLET (FP) PO SCH (22:05)
[2023-07-31] MEDS: THIAMINE HCL 100 MG TABLET (FP) PO SCH (22:05)
[2023-08-01] MEDS ORDERED: chlordiazePOXIDE HCL 10 MG CAPSULE PO SCH (05:00)
[2023-08-01 09:13] VITALS: RESP 20
[2023-08-01] MEDS: PRENATAL VITAMINS W/ FOLIC ACID TABLET (FP) PO SCH (10:22)
[2023-08-01] MEDS: risperiDONE 1 MG TABLET PO SCH (10:22)
[2023-08-01 13:05] VITALS: BP 130/73; PULSE 90; TEMP 98.9
[2023-08-02] MEDS ORDERED: chlordiazePOXIDE HCL 10 MG CAPSULE PO ONE (05:00)
== END 2023-08-01 13:50 | disposition home or self-care (01) | DRG 775 ==
LOC: YASAS 10:42 → Y3N 12:27 → Y6N 12:50
PROVIDERS: ADMIT Allergy & Immunology; ATTEND Allergy & Immunology
PROC: HZ2ZZZZ Detoxification Services for Substance Abuse Treatment (ICD-10-PCS; principal; 2023-07-28)
DX: F10.230 Alcohol dependence with withdrawal, uncomplicated (principal); F16.10 Hallucinogen abuse, uncomplicated; F12.20 Cannabis dependence, uncomplicated; F17.210 Nicotine dependence, cigarettes, uncomplicated; F25.9 Schizoaffective disorder, unspecified; F19.282 Other psychoactive substance dependence with psychoactive substance-induced sleep disorder; F19.24 Other psychoactive substance dependence with psychoactive substance-induced mood disorder; E87.5 Hyperkalemia; Z28.310 Unvaccinated for COVID-19; Z28.9 Immunization not carried out for unspecified reason
CPT/HCPCS: 36415; 80053; 80307; 82746; 84132; 85027; 86780; 87635; 87811; 93005; 93010

== ENCOUNTER 2023-12-31 09:53 | Inpatient (IN) | payer OTHER ==
[2023-12-31 10:17] VITALS: BMI 24.4
[2023-12-31] MEDS ORDERED: NICOTINE POLACRILEX 2 MG LOZENGE BC PRN (10:40)
[2023-12-31] MEDS ORDERED: NICOTINE POLACRILEX 2 MG GUM BUC PRN (10:40)
[2023-12-31] MEDS ORDERED: POLYETHYLENE GLYCOL (HEALTHYLAX) 3350 17 GM PACKET PO PRN (10:40)
[2023-12-31] MEDS ORDERED: MAGNESIUM HYDROX 2400MG/30ML ORAL SUSPENSION 30 ML CUP PO PRN (10:40)
[2023-12-31] MEDS ORDERED: IBUPROFEN 400 MG TABLET (FP) PO PRN (10:40)
[2023-12-31] MEDS ORDERED: LOPERAMIDE HCL 2 MG CAPSULE PO PRN (10:40)
[2023-12-31] MEDS ORDERED: MAG HYDROX/AL HYDROX/SIMETH 30 ML UNIT-DOSE CUP PO PRN (10:40)
[2023-12-31] MEDS: risperiDONE 1 MG TABLET PO ONE (17:24)
[2023-12-31] MEDS: THIAMINE 100 MG TABLET PO SCH (21:22)
[2023-12-31] MEDS: risperiDONE 1 MG TABLET PO SCH (21:23)
[2023-12-31] MEDS: traZODone HCL 50 MG TABLET (FP) PO SCH (21:23)
[2023-12-31] MEDS ORDERED: MELATONIN 5 MG TABLETS PO SCH (22:00)
[2024-01-01] MEDS: guaiFENesin 600 MG TABLET.ER (FP) PO PRN (04:30)
[2024-01-01] MEDS: PRENATAL VITAMINS W/ FOLIC ACID TABLET (FP) PO SCH (10:24)
[2024-01-01 11:35] LABS: PH,URINE 6.5 (5.0-8.0); URINE APPEARANCE CLEAR; URINE BILIRUBIN NEGATIVE (NEGATIVE); URINE COLOR YELLOW; URINE GLUCOSE (UA) NEGATIVE (NEGATIVE); URINE KETONE NEGATIVE (NEGATIVE); URINE LEUK ESTERASE NEGATIVE (NEGATIVE); URINE NITRITE NEGATIVE (NEGATIVE); URINE PROTEIN NEGATIVE (NEGATIVE); URINE UROBILINOGEN 0.2 mg/dL (0.2-1.0)
[2024-01-01 11:38] LABS: HEMOGLOBIN 13.2 GM/dL (11.7-16.9); MCH 33.6 pg (25.7-33.7); MCHC 34.7 g/dl (32.0-35.9); MEAN PLT VOLUME 9.4 fl (7.5-11.1); PLATELET COUNT 169 10^3/uL (134-434); RBC 3.92 M/mm3 (4.00-5.60); RDW 12.8 % (11.9-15.9); WHITE BLOOD COUNT 5.1 K/mm3 (4.0-10.0)
[2024-01-01 11:42] LABS: CHLORIDE 102 mmol/L (98-107); POTASSIUM 4.1 mmol/L (3.5-5.1); SODIUM 136 mmol/L (136-145)
[2024-01-01 11:45] LABS: CALCIUM 8.9 mg/dL (8.5-10.1)
[2024-01-01 11:46] LABS: ALBUMIN 3.5 g/dl (3.4-5.0); ANION GAP 5 mmol/L (4-13); BLOOD UREA NITROGEN 8.6 mg/dL (7-18); CO2 30 mmol/L (21-32); GLUCOSE,RANDOM 114 mg/dL (74-106)
[2024-01-01 11:49] LABS: CREATININE 0.8 mg/dL (0.55-1.3); SGOT/AST 24 U/L (15-37); SGPT/ALT 32 U/L (13-61)
[2024-01-01 11:51] LABS: BILIRUBIN,TOTAL 0.5 mg/dL (0.2-1); TOT PROT 6.6 g/dl (6.4-8.2)
[2024-01-01 11:52] LABS: ALK PHOS 82 U/L (45-117)
[2024-01-01] MEDS: BENZONATATE 200 MG CAPSULE PO PRN (15:15)
[2024-01-03] MEDS: ACETAMINOPHEN 325 MG TABLET (FP) PO PRN (09:09)
[2024-01-03] MEDS: BENZOCAINE/MENTHOL (CHLORASEPTIC ) LOZENGE MM PRN (09:10)
[2024-01-04] MEDS: IBUPROFEN 600 MG TABLET (FP) PO PRN (08:55)
[2024-01-10 06:31] VITALS: RESP 16
[2024-01-11 06:38] VITALS: BP 116/62; PULSE 73; TEMP 97.9
== END 2024-01-11 11:14 | disposition home or self-care (01) | DRG 772 ==
LOC: YASAS 09:53 → Y3E 11:32
PROVIDERS: ADMIT Allergy & Immunology; ATTEND Psychiatry & Neurology Pain Medicine
PROC: HZ42ZZZ Group Counseling for Substance Abuse Treatment, Cognitive-Behavioral (ICD-10-PCS; principal; 2023-12-31)
DX: F10.20 Alcohol dependence, uncomplicated (principal); F14.20 Cocaine dependence, uncomplicated; F18.10 Inhalant abuse, uncomplicated; F12.20 Cannabis dependence, uncomplicated; F19.282 Other psychoactive substance dependence with psychoactive substance-induced sleep disorder; F25.9 Schizoaffective disorder, unspecified; Z72.0 Tobacco use
CPT/HCPCS: 36415; 80053; 80305; 80307; 81003; 85027; 86780; 87811

== ENCOUNTER 2024-02-12 09:53 | Inpatient (IN) | payer OTHER ==
[2024-02-12 10:48] VITALS: BMI 25.4
[2024-02-12] MEDS ORDERED: BENZOCAINE/MENTHOL (CHLORASEPTIC ) LOZENGE MM PRN (10:59)
[2024-02-12] MEDS ORDERED: guaiFENesin 600 MG TABLET.ER (FP) PO PRN (10:59)
[2024-02-12] MEDS ORDERED: MAG HYDROX/AL HYDROX/SIMETH 30 ML UNIT-DOSE CUP PO PRN (10:59)
[2024-02-12] MEDS ORDERED: POLYETHYLENE GLYCOL (HEALTHYLAX) 3350 17 GM PACKET PO PRN (10:59)
[2024-02-12] MEDS ORDERED: ACETAMINOPHEN 325 MG TABLET (FP) PO PRN (10:59)
[2024-02-12] MEDS ORDERED: BENZONATATE 200 MG CAPSULE PO PRN (10:59)
[2024-02-12] MEDS ORDERED: MAGNESIUM HYDROX 2400MG/30ML ORAL SUSPENSION 30 ML CUP PO PRN (10:59)
[2024-02-12] MEDS ORDERED: NALOXONE HCL 0.4 MG/ML VIAL IM PRN (10:59)
[2024-02-12] MEDS ORDERED: NALOXONE (NARCAN) HCL 4 MG/0.1 ML SPRAY NS PRN (10:59)
[2024-02-12] MEDS ORDERED: IBUPROFEN 600 MG TABLET (FP) PO PRN (10:59)
[2024-02-12] MEDS ORDERED: ONDANSETRON *ODT* 4 MG TABLET SL PRN (10:59)
[2024-02-12] MEDS ORDERED: IBUPROFEN 400 MG TABLET (FP) PO PRN (10:59)
[2024-02-12] MEDS ORDERED: LOPERAMIDE HCL 2 MG CAPSULE PO PRN (10:59)
[2024-02-12] MEDS ORDERED: DICYCLOMINE HCL 10 MG CAPSULE PO PRN (10:59)
[2024-02-12] MEDS: METHOCARBAMOL 500 MG TABLET PO PRN (22:25)
[2024-02-12] MEDS: traZODone HCL 50 MG TABLET (FP) PO PRN (22:25)
[2024-02-12] MEDS: THIAMINE 100 MG TABLET PO SCH (22:25)
[2024-02-12] MEDS: MELATONIN 5 MG TABLETS PO SCH (22:25)
[2024-02-13] MEDS ORDERED: chlordiazePOXIDE HCL 25 MG CAPSULE PO PRN (10:04)
[2024-02-13] MEDS: PRENATAL VITAMINS W/ FOLIC ACID TABLET (FP) PO SCH (10:16)
[2024-02-13] MEDS: chlordiazePOXIDE HCL 25 MG CAPSULE PO SCH (10:16)
[2024-02-13] MEDS: hydrOXYzine PAMOATE 25 MG CAPSULE (FP) PO PRN (10:16)
[2024-02-13 10:24] LABS: HEMATOCRIT 41.3 % (35.4-49); HEMOGLOBIN 14.1 GM/dL (11.7-16.9); MCH 32.7 pg (25.7-33.7); MCHC 34.1 g/dl (32.0-35.9); MEAN CELL VOLUME 95.8 fl (80-96); MEAN PLT VOLUME 10.1 fl (7.5-11.1); PLATELET COUNT 168 10^3/uL (134-434); RBC 4.31 M/mm3 (4.00-5.60); RDW 12.9 % (11.9-15.9); WHITE BLOOD COUNT 2.9 K/mm3 (4.0-10.0)
[2024-02-13 10:47] LABS: POTASSIUM 4.7 mmol/L (3.5-5.1)
[2024-02-13 10:58] LABS: ALBUMIN 4.1 g/dl (3.4-5.0); BLOOD UREA NITROGEN 10.2 mg/dL (7-18); CALCIUM 9.2 mg/dL (8.5-10.1)
[2024-02-13 11:02] LABS: CREATININE 0.7 mg/dL (0.55-1.3)
[2024-02-13 11:03] LABS: BILIRUBIN,TOTAL 1.1 mg/dL (0.2-1); TOT PROT 7.7 g/dl (6.4-8.2)
[2024-02-13] MEDS: BISMUTH SUBSALICYLATE 524 MG/30 ML PO PRN (13:45)
[2024-02-13] MEDS ORDERED: risperiDONE 1 MG TABLET PO ONE (18:53)
[2024-02-13] MEDS: risperiDONE 1 MG TABLET PO ONE (20:45)
[2024-02-14 09:30] VITALS: RESP 16
[2024-02-14 13:28] VITALS: BP 111/74; PULSE 83; TEMP 97.5
[2024-02-15] MEDS ORDERED: chlordiazePOXIDE HCL 25 MG CAPSULE PO SCH (05:00)
[2024-02-16] MEDS ORDERED: chlordiazePOXIDE HCL 10 MG CAPSULE PO PRN
[2024-02-16] MEDS ORDERED: chlordiazePOXIDE HCL 10 MG CAPSULE PO SCH (05:00)
[2024-02-17] MEDS ORDERED: chlordiazePOXIDE HCL 10 MG CAPSULE PO SCH (05:00)
[2024-02-18] MEDS ORDERED: chlordiazePOXIDE HCL 10 MG CAPSULE PO ONE (05:00)
== END 2024-02-14 12:50 | disposition left against medical advice (07) | DRG 770 ==
LOC: YASAS 09:53 → Y6N 11:38
PROVIDERS: ADMIT Allergy & Immunology; ATTEND Surgery
PROC: HZ2ZZZZ Detoxification Services for Substance Abuse Treatment (ICD-10-PCS; principal; 2024-02-12)
DX: F10.230 Alcohol dependence with withdrawal, uncomplicated (principal); F14.20 Cocaine dependence, uncomplicated; F12.20 Cannabis dependence, uncomplicated; F17.210 Nicotine dependence, cigarettes, uncomplicated; F19.982 Other psychoactive substance use, unspecified with psychoactive substance-induced sleep disorder; F19.980 Other psychoactive substance use, unspecified with psychoactive substance-induced anxiety disorder; Z91.148 Patient's other noncompliance with medication regimen for other reason; Z56.0 Unemployment, unspecified
CPT/HCPCS: 36415; 80053; 80305; 80307; 85027; 86780; 93005; 93010

== ENCOUNTER 2024-03-27 12:02 | Inpatient (IN) | payer OTHER ==
[2024-03-27 12:51] VITALS: BMI 25.5
[2024-03-27] MEDS ORDERED: NALOXONE HCL 0.4 MG/ML VIAL IM PRN (14:49)
[2024-03-27] MEDS ORDERED: POLYETHYLENE GLYCOL (HEALTHYLAX) 3350 17 GM PACKET PO PRN (14:49)
[2024-03-27] MEDS ORDERED: guaiFENesin 600 MG TABLET.ER (FP) PO PRN (14:49)
[2024-03-27] MEDS ORDERED: ACETAMINOPHEN 325 MG TABLET (FP) PO PRN (14:49)
[2024-03-27] MEDS ORDERED: BENZONATATE 200 MG CAPSULE PO PRN (14:49)
[2024-03-27] MEDS ORDERED: MAGNESIUM HYDROX 2400MG/30ML ORAL SUSPENSION 30 ML CUP PO PRN (14:49)
[2024-03-27] MEDS ORDERED: IBUPROFEN 600 MG TABLET (FP) PO PRN (14:49)
[2024-03-27] MEDS ORDERED: NALOXONE (NARCAN) HCL 4 MG/0.1 ML SPRAY NS PRN (14:49)
[2024-03-27] MEDS ORDERED: LOPERAMIDE HCL 2 MG CAPSULE PO PRN (14:49)
[2024-03-27] MEDS ORDERED: BISMUTH SUBSALICYLATE 524 MG/30 ML PO PRN (14:49)
[2024-03-27] MEDS ORDERED: chlordiazePOXIDE HCL 25 MG CAPSULE PO PRN (14:49)
[2024-03-27] MEDS ORDERED: IBUPROFEN 400 MG TABLET (FP) PO PRN (14:49)
[2024-03-27] MEDS ORDERED: DICYCLOMINE HCL 10 MG CAPSULE PO PRN (14:49)
[2024-03-27] MEDS ORDERED: BENZOCAINE/MENTHOL (CHLORASEPTIC ) LOZENGE MM PRN (14:49)
[2024-03-27] MEDS: chlordiazePOXIDE HCL 25 MG CAPSULE PO SCH (17:23)
[2024-03-27] MEDS: MELATONIN 5 MG TABLETS PO SCH (23:22)
[2024-03-27] MEDS: THIAMINE 100 MG TABLET PO SCH (23:22)
[2024-03-28] MEDS: PRENATAL VITAMINS W/ FOLIC ACID TABLET (FP) PO SCH (10:05)
[2024-03-28] MEDS: METHOCARBAMOL 500 MG TABLET PO PRN (10:06)
[2024-03-28 11:09] LABS: CHLORIDE 103 mmol/L (98-107); HEMATOCRIT 42.5 % (35.4-49); HEMOGLOBIN 14.7 GM/dL (11.7-16.9); MCH 32.8 pg (25.7-33.7); MCHC 34.7 g/dl (32.0-35.9); MEAN CELL VOLUME 94.6 fl (80-96); MEAN PLT VOLUME 9.5 fl (7.5-11.1); PLATELET COUNT 182 10^3/uL (134-434); RBC 4.49 M/mm3 (4.00-5.60); RDW 12.9 % (11.9-15.9); SODIUM 136 mmol/L (136-145); WHITE BLOOD COUNT 4.7 K/mm3 (4.0-10.0)
[2024-03-28 11:15] LABS: ANION GAP 8 mmol/L (4-13); CALCIUM 9.4 mg/dL (8.5-10.1); CO2 26 mmol/L (21-32)
[2024-03-28 11:17] LABS: ALBUMIN 3.5 g/dl (3.4-5.0); BLOOD UREA NITROGEN 4.9 mg/dL (7-18)
[2024-03-28 11:18] LABS: CREATININE 0.5 mg/dL (0.55-1.3); GLUCOSE,RANDOM 132 mg/dL (74-106); SGOT/AST 76 U/L (15-37); SGPT/ALT 83 U/L (13-61)
[2024-03-28 11:21] LABS: ALK PHOS 96 U/L (45-117)
[2024-03-28 11:24] LABS: BILIRUBIN,TOTAL 1.1 mg/dL (0.2-1)
[2024-03-28] MEDS: risperiDONE 1 MG TABLET PO SCH (12:36)
[2024-03-28] MEDS: ONDANSETRON *ODT* 4 MG TABLET SL PRN (19:42)
[2024-03-28] MEDS: traZODone HCL 50 MG TABLET (FP) PO SCH (22:08)
[2024-03-28] MEDS: MAG HYDROX/AL HYDROX/SIMETH 30 ML UNIT-DOSE CUP PO PRN (23:28)
[2024-03-29] MEDS: chlordiazePOXIDE HCL 25 MG CAPSULE PO SCH (05:43)
[2024-03-29 12:37] VITALS: BP 107/72; PULSE 107; RESP 16; TEMP 97.9
[2024-03-30] MEDS ORDERED: chlordiazePOXIDE HCL 10 MG CAPSULE PO PRN
[2024-03-30] MEDS ORDERED: chlordiazePOXIDE HCL 10 MG CAPSULE PO SCH (05:00)
[2024-03-31] MEDS ORDERED: chlordiazePOXIDE HCL 10 MG CAPSULE PO SCH (05:00)
[2024-04-01] MEDS ORDERED: chlordiazePOXIDE HCL 10 MG CAPSULE PO ONE (05:00)
== END 2024-03-29 14:07 | disposition home or self-care (01) | DRG 775 ==
LOC: YASAS 12:02 → Y6N 15:20
PROVIDERS: ADMIT Allergy & Immunology; ATTEND Surgery
PROC: HZ2ZZZZ Detoxification Services for Substance Abuse Treatment (ICD-10-PCS; principal; 2024-03-27)
DX: F10.230 Alcohol dependence with withdrawal, uncomplicated (principal); F16.20 Hallucinogen dependence, uncomplicated; F12.20 Cannabis dependence, uncomplicated; Z72.0 Tobacco use; F25.1 Schizoaffective disorder, depressive type; F19.282 Other psychoactive substance dependence with psychoactive substance-induced sleep disorder; F19.24 Other psychoactive substance dependence with psychoactive substance-induced mood disorder; M54.50 Low back pain, unspecified; G89.29 Other chronic pain; R73.9 Hyperglycemia, unspecified
CPT/HCPCS: 36415; 80053; 80305; 80307; 82140; 85027; 86780; 93005; 93010; Q0162